=== PATIENT | male | born 1990 | race Caucasian/White ===

== ENCOUNTER 2021-02-23 09:35 | Emergency (ER) | payer MEDICAID ==
[~2021-02-23] VITALS: Ht 188 cm; Wt 68.0 kg
[2021-02-23 09:35] VITALS: BP_SYST 145
[2021-02-23] MEDS ORDERED: IBUPROFEN 600 MG TABLET PO ONE (10:00)
[2021-02-23] MEDS ORDERED: CEPH-548 PO (10:56)
[2021-02-23] MEDS ORDERED: IBUP-1969 PO (10:56)
[2021-02-23 11:21] VITALS: BP_SYST 138
== END 2021-02-23 11:21 | disposition home or self-care (01) ==
LOC: SED 09:35
DX: S93.401A Sprain of unspecified ligament of right ankle, initial encounter (principal); L03.031 Cellulitis of right toe; Z79.899 Other long term (current) drug therapy; X50.0XXA Overexertion from strenuous movement or load, initial encounter; Y93.89 Activity, other specified; Y92.89 Other specified places as the place of occurrence of the external cause; Y99.8 Other external cause status
CPT/HCPCS: 99283

== ENCOUNTER 2021-03-01 14:05 | Emergency (ER) | payer MEDICAID ==
[~2021-03-01] VITALS: Ht 175.3 cm; Wt 68.0 kg
[~2021-03-01 14:05] MED LIST: CEPH-548 PO; IBUP-1969 PO
[2021-03-01 14:25] VITALS: BP_SYST 124
--- NOTE | 2021-03-01 14:30 | NUR ---
ER DR. PINTO AT THE BEDSIDE EXAMINING PT
--- NOTE | 2021-03-01 14:35 | NUR ---
PT CAME IN C/O RIGHT GREAT TOE PAIN, SWELLING AND LARGE PUS FILLED BLISTER BELOW CUTICLE LINE OF NAIL. STATES HE CUT THE AREA AND OVER A COUPLE OF WEEKS IT HAS BECOME MORE PAINFUL AND SWOLLEN. PT IS AFRAID IT IS INFECTED. ABLE TO AMBULATE, AAOX4, V/S STABLE
[2021-03-01] MEDS ORDERED: LIDOCAINE 1% 10 MG/ML, 20 ML MDV INJ ONE (14:45)
[2021-03-01] MEDS ORDERED: BACITRACIN 1 GM OINT TP ONE (14:45)
[2021-03-01] MEDS ORDERED: DIPH-TET-PERTUS Vaccine 0.5 ML VIAL (ADACEL) I.M. ONE (14:45)
--- NOTE | 2021-03-01 15:00 | NUR ---
ER DR. PINTO AT BEDSIDE, LAC KIT SET UP FOR I&D, PT TOLERATING WELL
[2021-03-01 15:04] LABS: BASOPHILS % (AUTO) 0.4 % (0.0-2.0); EOSINOPHILS # (AUTO) 0.1 K/uL (0.0-0.4); EOSINOPHILS % (AUTO) 0.7 % (0.0-4.0); HEMATOCRIT 41.9 % (36-54); HEMOGLOBIN 14.6 g/dL (14.0-18.0); LYMPHOCYTES % (AUTO) 20.1 % (20.5-51.5); MEAN CORPUSCULAR HEMOGLOBIN 30 pg (27-31); MEAN CORPUSCULAR HGB CONC 35 % (32-36); MEAN CORPUSCULAR VOLUME 85 fL (79.0-98.0); MONOCYTES # (AUTO) 0.9 K/uL (0.0-1.0); MONOCYTES % (AUTO) 9.1 % (1.7-9.3); NEUTROPHILS # (AUTO) 6.8 K/uL (1.8-7.7); NEUTROPHILS % (AUTO) 69.7 % (40.0-70.0); PLATELET COUNT (AUTO) 360 K/uL (130-430); RED BLOOD CELL COUNT(AUTO) 4.91 MIL/uL (4.2-6.2); RED CELL DISTRIBUTION WIDTH 12.8 % (9.0-15.0); WHITE BLOOD COUNT (AUTO) 9.7 K/uL (4.8-10.8)
[2021-03-01 15:18] LABS: CALCIUM 8.5 mg/dL (8.4-11.0); CREATININE 0.97 mg/dL (0.55-1.30); POTASSIUM 4.1 mmol/L (3.5-5.1)
[2021-03-01 15:23] LABS: ALBUMIN 3.9 g/dL (3.4-4.8); C-REACTIVE PROTEIN QUANT 0.8 mg/dL (0-0.5); TOTAL BILIRUBIN 0.1 mg/dL (0.0-1.0)
[2021-03-01 15:26] LABS: INR 0.9 (0.80-1.20)
--- NOTE | 2021-03-01 15:31 | NUR ---
PORTABLE X-RAY AT THE BEDSIDE
[2021-03-01] MEDS ORDERED: CLIN300C12 PO (15:39)
[2021-03-01 16:12] VITALS: BP_SYST 127
--- NOTE | 2021-03-01 16:14 | NUR ---
CALL TO [facility] FOR [facility]
--- NOTE | 2021-03-01 16:15 | NUR ---
Patient given written and verbal discharge instructions and verbalizes understanding. Given copies of tests performed during visit. Patient is awake, alert and oriented. Ambulatory with steady gait. Refuses offer of half-way placement. Given list of available shelters in surrounding areas.
== END 2021-03-01 16:12 | disposition home or self-care (01) ==
LOC: SED 14:05
DX: L03.031 Cellulitis of right toe (principal); Z79.899 Other long term (current) drug therapy
CPT/HCPCS: 10060; 36415; 73660; 80053; 83605; 85025; 85610; 85730; 86140; 90471; 90715; 99284; J2001

== ENCOUNTER 2021-08-03 21:06 | Emergency (ER) | payer SELFPAY ==
[~2021-08-03] VITALS: Ht 188 cm; Wt 73.5 kg
[~2021-08-03 21:06] MED LIST changes: +CLIN-142 PO
[2021-08-03 21:21] VITALS: BP_SYST 143
--- NOTE | 2021-08-03 22:20 | NUR ---
Patient to ER bed 3 to gown for evaluation. Side rails up. Report given to KEVIN BARRY
[2021-08-03] MEDS ORDERED: IBUP-1969 PO (23:34)
[2021-08-03 23:47] VITALS: BP_SYST 115
== END 2021-08-03 23:45 | disposition home or self-care (01) ==
LOC: SED 21:06
DX: S09.90XA Unspecified injury of head, initial encounter (principal); R51.9 Headache, unspecified; W18.39XA Other fall on same level, initial encounter; Y93.89 Activity, other specified; Y92.89 Other specified places as the place of occurrence of the external cause; Y99.8 Other external cause status
CPT/HCPCS: 99281